=== PATIENT | female | born 1985 | race Caucasian/White ===

== ENCOUNTER 2024-03-14 11:46 | Emergency (ER) | payer BC, SELFPAY ==
[2024-03-14 12:32] VITALS: BP 116/68; PULSE 72; RESP 17; TEMP 36.7; O2SAT 99; BMI 34.3
[2024-03-14 12:34] LABS: Basophils # 0.1 10^3/uL (0.0-0.1); Basophils % 0.4 %; Eosinophils # 0.4 10^3/uL (0.0-0.8); Eosinophils % 2.6 %; Lymphocytes # 3.1 10^3/uL (0.8-4.8); Mean Corpuscular Hemoglobin 29.4 pg (27-33); Mean Corpuscular Volume 91.7 fl (85-98); Monocytes # 1.2 10^3/uL (0.2-0.9); Monocytes % 7.9 %; Neutrophils # 10.69 10^3/uL (1.8-7.7); Neutrophils % 68.7 %; Nucleated Red Blood Cells % 0 %; Platelet Count 235 10^3/cmm (157-399); Red Blood Count 4.36 10^6/uL (3.85-5.65); Red Cell Distribution Width 13.3 % (12.1-15.1); White Blood Count 15.58 10^3/uL (3.29-11.43)
--- NOTE | 2024-03-14 12:42 | XRR_ITS ---
PROCEDURE INFORMATION: Exam: XR Abdomen Exam date and time: 03/14/2024 12:51 PM Age: 38 years old Clinical indication: Constipation; Abdominal pain; Generalized; Additional info: Abd pain/constipation TECHNIQUE: Imaging protocol: Radiologic exam of the abdomen. Views: 2 Views. Upright and supine views. COMPARISON: No relevant prior studies available. FINDINGS: Gastrointestinal tract: Normal. No bowel dilation. Intraperitoneal space: Normal. No free air. Bones/joints: Unremarkable for age. XR/XR acute abdomen series [id number] IMPRESSION: No acute findings.
--- NOTE | 2024-03-14 12:42 | ED_ITS ---
Documented by User: Brenden Avalos DO 03/16/24 06:07 HPI - Abdominal Pain 2 General: Chief Complaint: Abdominal Pain Stated Complaint: dr hunter, abd pain, back pain Time Seen by Provider: 03/14/24 12:42 History of Present Illness: 38-year-old female presents emergency ro om complaining of left flank pain. She states she has had vomiting and constipation with this. She has tried several laxatives with no significant relief. She denies any medic easy melena hematemesis calf cramps no hematuria. Initial triage note referred to abdominal pain however Dr. patient is more of her back on her left flank. She has noted frequency of urination mild discomfort very minimal with urination she denies fever sweats or chills at home no shortness of breath or cough. Onset (ago): day(s) (3-4) Pain Consistency: colicky Location: L flank Severity: moderate Exacerbating factors: nothing Relieving factors: nothing Associated Symptoms: Reports dysuria (Mild); Denies chills and fever(s) Related Data: Date of Last Menstrual Period: 03/14/24 Review of Systems 2 Const: Denies: fever(s) or chills Card: Denies: chest pain Resp: Denies: dyspnea GI: Denies: abdominal pain : Reports: flank pain (Left), dysuria (Mild) and urinary frequency; Denies: urinary urgency Musc: Denies: neck pain or back pain Skin/Breast: Denies: rash [facility] 2 Female Reproductive History: Date of last menstrual period: 03/14/24 Physical Exam 2 Const: COMMON NORMALS: no acute distress GENERAL APPEARANCE: cooperative and comfortable ORIENTATION/CONSCIOUSNESS: Yes awake, Yes oriented to person, Yes oriented to place and Yes oriented to time HENMT: COMMON NORMALS: normocephalic, atraumatic and hearing grossly normal bilaterally HEAD & SCALP: normocephalic and atraumatic Resp: COMMON NORMALS: normal respiratory effort, No retractions, No use of accessory muscles and clear to auscultation bilaterally AUSCULTATION: clear to auscultation bilaterally Cardio: COMMON NORMALS: regular rate, regular rhythm and No murmurs present (Cardio) RATE: regular rate RHYTHM: regular rhythm GI: COMMON NORMALS: Soft to palpation and No hepatosplenomegaly present A USCULTATION: Yes normoactive bowel sounds PALPATION: Yes Soft to palpation, No Tenderness to palpation present (GI), No Guarding due to palpation present (GI) and Yes No hepatosplenomegaly present Extremity: COMMON NORMALS: normal to inspection, capillary refill normal, no clubbing, cyanosis or edema, no calf tenderness and no pedal edema Neuro: SENSORIUM/ORIENTATION: Yes oriented to person, Yes oriented to place and Yes oriented to time Skin: COMMON NORMALS: no rashes or lesions noted GENERAL SKIN EXAM: no rashes or lesions noted Course 2 Vital Signs: Vital signs: Vital Signs Temperature 98.1 F 03/14/24 12:32 Pulse Rate 71 03/14/24 16:33 Respiratory Rate 16 03/14/24 18:34 Blood Pressure 100/85 03/14/24 18:34 Pulse Oximetry 98 03/14/24 16:33 Oxygen Delivery Me thod Room Air 03/14/24 16:33 MDM - Abdominal Pain Medical Decision Making Mild leukocytosis generally patient is not feeling well her blood pressure is a little low at times we recommended observation for continued IV fluids and antibiotics however patient refuses. Her lactic acid was 0.8. Urine did show mild infection. Patient was given IV fluids single dose of tract ceftriaxone will discharge home with ciprofloxacin if symptoms worsen encouraged her to return for admission. Lab Data 03/14/24 12:06 03/14/24 12:06 Labs/Radiology: Radiology Impressions Chest/Abdomen X-ray 03/14/24 12:42 IMPRESSION: No acute findings. Abdomen/Pelvis CT 03/14/24 13:57 IMPRESSION: 1. Peripherally enhancing LEFT corpus luteum or hemorrhagic cyst measuring 2.7 x 2.2 cm with a small amount of adjacent free fluid extending into the cul-de-sac. 2. Mild diffuse fatty infiltration of the liver. 3. Normal appendix. 4. A few sigmoid diverticuli. 5. No hydronephrosis in either kidney. Laboratory Results WBC 15.58 10^3/uL (3.29-11.43) H 03/14/24 12:06 RBC 4.36 10^6/uL (3.85-5.65) 03/14/24 12:06 Hgb 12.80 g/dL (11.27-16.99) 03/14/24 12:06 Hct 40.0 % (36-47) 03/14/24 12:06 MCV 91.7 fl (85-98) 03/14/24 12:06 MCH 29.4 pg (27-33) 03/14/24 12:06 MCHC 32.0 g/dL (30-55) 03/14/24 12:06 RDW 13.3 % (12.1-15.1) 03/14/24 12:06 Plt Count 235 10^3/cmm (157-399) 03/14/24 12:06 MPV 13.0 fL (7.4-10.4) H 03/14/24 12:06 Neut % (Auto) 68.7 % 03/14/24 12:06 Lymph % (Auto) 20.0 % 03/14/24 12:06 [place] % (Auto) 7.9 % 03/14/24 12:06 Eos % (Auto) 2.6 % 03/14/24 12:06 Baso % (Auto) 0.4 % 03/14/24 12:06 Neut # (Auto) 10.69 10^3/uL (1.8-7.7) H 03/14/24 12:06 Lymph # (Auto) 3.1 10^3/uL (0.8-4.8) 03/14/24 12:06 [place] # (Auto) 1.2 10^3/uL (0.2-0.9) H 03/14/24 12:06 Eos # (Auto) 0.4 10^3/uL (0.0-0.8) 03/14/24 12:06 Baso # (Auto) 0.1 10^3/uL (0.0-0.1) 03/14/24 12:06 Nucleated RBC % (auto) 0 % 03/14/24 12:06 Nucleated RBCs # 0.0 /100WBC 03/14/24 12:06 Sodium 141 mmol/L (136-145) 03/14/24 12:06 Potassium 3.5 mmol/L (3.5-5.1) 03/14/24 12:06 Chloride 103 mmol/L (98-107) 03/14/24 12:06 Carbon Dioxide 25 mmol/L (22-29) 03/14/24 12:06 Anion Gap 16.5 (5-19) 03/14/24 12:06 BUN 9 mg/dL (6-20) 03/14/24 12:06 Creatinine 0.8 mg/dL (0.5-0.9) 03/14/24 12:06 GFR Calculation 79.9 mL/min (90-130) L 03/14/24 12:06 Glucose 132 mg/dL (65-115) H 03/14/24 12:06 Calculated Osmolality 293 mOsm/kg (285-295) 03/14/24 12:06 Lactic Acid 0.8 mmol/L (0.5-2.2) 03/14/24 15:57 Calcium 9.3 mg/dL (8.5-10.5) 03/14/24 12:06 Total Bilirubin 0.4 mg/dL (0.15-1.2) 03/14/24 12:06 AST 12 U/L (0-32) 03/14/24 12:06 ALT 7 U/L (0-33) 03/14/24 12:06 Alkaline Phosphatase 108 U/L (35-105) H 03/14/24 12:06 Total Protein 7.6 g/dL (6.6-8.7) 03/14/24 12:06 Albumin 4.3 g/dL (3.5-5.2) 03/14/24 12:06 Globulin 3.3 g/dL (1.3-4.6) 03/14/24 12:06 Lipase 12 U/L (13-60) L 03/14/24 12:06 HCG, Qual Negative (Negative) 03/14/24 12:06 Urine Color Dark yellow (Yellow) A 03/14/24 13:43 Urine Appearance Clear (CLEAR) 03/14/24 13:43 Urine pH 5 (5-7) 03/14/24 13:43 Ur Specific [place] 1.030 (1.005-1.030) 03/14/24 13:43 Urine Protein 1+ (Negative) H 03/14/24 13:43 Urine Glucose (UA) Norm (Normal) 03/14/24 13:43 Urine Ketones 1+ (Negative) H 03/14/24 13:43 Urine Blood 3+ (Negative) H 03/14/24 13:43 Urine Nitrate Positive (Negative) A 03/14/24 13:43 Urine Bilirubin 1+ (Negative) H 03/14/24 13:43 Urine Urobilinogen 1 mg/dL (Negative) H 03/14/24 13:43 Ur Leukocyte Esterase Trace (Negative) H 03/14/24 13:43 Urine RBC 10-15 /hpf (0-2) H 03/14/24 13:43 Urine WBC 10-15 /hpf (0-5) H 03/14/24 13:43 Ur Squamous Epith Cells 0-4 /hpf (0-5) H 03/14/24 13:43 Amorphous Sediment Not Reportable 03/14/24 13:43 Urine Bacteria 1+ /hpf (NONE) H 03/14/24 13:43 Urine Mucus 3+ /hpf 03/14/24 13:43 Discharge Plan Discharge Patient Disposition: Home Clinical Impression: Cyst of left ovary Urinary tract infection Qualifiers: Urinary tract infection type: acute pyelonephritis Qualified Code(s): N10 - Acute pyelonephritis Condition: Stable Prescriptions: New ciprofloxacin HCl 500 mg tablet 500 mg PO Q12H Qty: 20 0RF No Action albuterol sulfate 90 mcg/actuation HFA aerosol inhaler 2 puff INHALATION .Q4-6H PRN (Reason: Shortness Of Breath Or Wheezing) fluticasone propionate 50 mcg/actuation spray,suspension 2 spray INTRANASAL DAILY biotin 5 mg Tablet 5 mg PO DAILY Vitamin D3 50 mcg (2,000 unit) Tablet 50 mcg PO DAILY cranberry 450 mg Tablet 450 mg PO DAILY Rx Instructions: administer with a meal melatonin 10 mg Tablet 10 mg PO BEDTIME Discharge Orders: Discharge ED (Routine); Ordered 03/14/24 Ordered By: Nazario Barksdale Patient Instructions: Ovarian Cyst (ED), Kidney Infection (ED), Flank Pain (ED) Activity Restrictions/Additional Instructions: Your evaluation ER showed you have a significant urinary tract/kidney infection and a left ovarian cyst. These may be the cause of your significant flank pain. You have been prescribed an antibiotic as well as given an antibiotic here in ER. Please follow-up with your family practice physician and/or CLIENT RESOLUTION SPECIALIST within the next 7 days for further evaluation and treatment. If your pain becomes unbearable please feel free to return to the ER. Thank you for choosing [facility] for your healthcare needs today. Please realize that you were seen in the emergency department and that we are providing you with an emergency medical screening exam and this may not be a complete and all exclusive of all testing and/or medical workup we may need to determine your element or severity of your illness. It is very important that you follow-up as instructed with your primary care provider or specialist for the additional evaluation and to discuss your medical treatment plan. You may return to the emergency department should you have concerns or if your condition changes or worsens in any way. Coding Level of Care Code ED Air Valve Repairer for Chg Fwd Documented by User: Nazario Barksdale DO 03/15/24 04:45 HPI - Abdominal Pain 2 General: Chief Complaint: Abdominal Pain Stated Complaint: dr referral, abd pain, back pain Time Seen by Provider: 03/14/24 12:42 Course 2 Vital Signs: Vital signs: Vital Signs Temperature 98.1 F 03/14/24 12:32 Pulse Rate 71 03/14/24 16:33 Respiratory Rate 16 03/14/24 18:34 Blood Pressure 100/85 03/14/24 18:34 Pulse Oximetry 98 03/14/24 16:33 Oxygen Delivery Me thod Room Air 03/14/24 16:33 MDM - Abdominal Pain Lab Data 03/14/24 12:06 03/14/24 12:06 Labs/Radiology: Radiology Impressions Chest/Abdomen X-ray 03/14/24 12:42 IMPRESSION: No acute findings. Abdomen/Pelvis CT 03/14/24 13:57 IMPRESSION: 1. Peripherally enhancing LEFT corpus luteum or hemorrhagic cyst measuring 2.7 x 2.2 cm with a small amount of adjacent free fluid extending into the cul-de-sac. 2. Mild diffuse fatty infiltration of the liver. 3. Normal appendix. 4. A few sigmoid diverticuli. 5. No hydronephrosis in either kidney. Laboratory Results WBC 15.58 10^3/uL (3.29-11.43) H 03/14/24 12:06 RBC 4.36 10^6/uL (3.85-5.65) 03/14/24 12:06 Hgb 12.80 g/dL (11.27-16.99) 03/14/24 12:06 Hct 40.0 % (36-47) 03/14/24 12:06 MCV 91.7 fl (85-98) 03/14/24 12:06 MCH 29.4 pg (27-33) 03/14/24 12:06 MCHC 32.0 g/dL (30-55) 03/14/24 12:06 RDW 13.3 % (12.1-15.1) 03/14/24 12:06 Plt Count 235 10^3/cmm (157-399) 03/14/24 12:06 MPV 13.0 fL (7.4-10.4) H 03/14/24 12:06 Neut % (Auto) 68.7 % 03/14/24 12:06 Lymph % (Auto) 20.0 % 03/14/24 12:06 [place] % (Auto) 7.9 % 03/14/24 12:06 Eos % (Auto) 2.6 % 03/14/24 12:06 Baso % (Auto) 0.4 % 03/14/24 12:06 Neut # (Auto) 10.69 10^3/uL (1.8-7.7) H 03/14/24 12:06 Lymph # (Auto) 3.1 10^3/uL (0.8-4.8) 03/14/24 12:06 [place] # (Auto) 1.2 10^3/uL (0.2-0.9) H 03/14/24 12:06 Eos # (Auto) 0.4 10^3/uL (0.0-0.8) 03/14/24 12:06 Baso # (Auto) 0.1 10^3/uL (0.0-0.1) 03/14/24 12:06 Nucleated RBC % (auto) 0 % 03/14/24 12:06 Nucleated RBCs # 0.0 /100WBC 03/14/24 12:06 Sodium 141 mmol/L (136-145) 03/14/24 12:06 Potassium 3.5 mmol/L (3.5-5.1) 03/14/24 12:06 Chloride 103 mmol/L (98-107) 03/14/24 12:06 Carbon Dioxide 25 mmol/L (22-29) 03/14/24 12:06 Anion Gap 16.5 (5-19) 03/14/24 12:06 BUN 9 mg/dL (6-20) 03/14/24 12:06 Creatinine 0.8 mg/dL (0.5-0.9) 03/14/24 12:06 GFR Calculation 79.9 mL/min (90-130) L 03/14/24 12:06 Glucose 132 mg/dL (65-115) H 03/14/24 12:06 Calculated Osmolality 293 mOsm/kg (285-295) 03/14/24 12:06 Lactic Acid 0.8 mmol/L (0.5-2.2) 03/14/24 15:57 Calcium 9.3 mg/dL (8.5-10.5) 03/14/24 12:06 Total Bilirubin 0.4 mg/dL (0.15-1.2) 03/14/24 12:06 AST 12 U/L (0-32) 03/14/24 12:06 ALT 7 U/L (0-33) 03/14/24 12:06 Alkaline Phosphatase 108 U/L (35-105) H 03/14/24 12:06 Total Protein 7.6 g/dL (6.6-8.7) 03/14/24 12:06 Albumin 4.3 g/dL (3.5-5.2) 03/14/24 12:06 Globulin 3.3 g/dL (1.3-4.6) 03/14/24 12:06 Lipase 12 U/L (13-60) L 03/14/24 12:06 HCG, Qual Negative (Negative) 03/14/24 12:06 Urine Color Dark yellow (Yellow) A 03/14/24 13:43 Urine Appearance Clear (CLEAR) 03/14/24 13:43 Urine pH 5 (5-7) 03/14/24 13:43 Ur Specific [place] 1.030 (1.005-1.030) 03/14/24 13:43 Urine Protein 1+ (Negative) H 03/14/24 13:43 Urine Glucose (UA) Norm (Normal) 03/14/24 13:43 Urine Ketones 1+ (Negative) H 03/14/24 13:43 Urine Blood 3+ (Negative) H 03/14/24 13:43 Urine Nitrate Positive (Negative) A 03/14/24 13:43 Urine Bilirubin 1+ (Negative) H 03/14/24 13:43 Urine Urobilinogen 1 mg/dL (Negative) H 03/14/24 13:43 Ur Leukocyte Esterase Trace (Negative) H 03/14/24 13:43 Urine RBC 10-15 /hpf (0-2) H 03/14/24 13:43 Urine WBC 10-15 /hpf (0-5) H 03/14/24 13:43 Ur Squamous Epith Cells 0-4 /hpf (0-5) H 03/14/24 13:43 Amorphous Sediment Not Reportable 03/14/24 13:43 Urine Bacteria 1+ /hpf (NONE) H 03/14/24 13:43 Urine Mucus 3+ /hpf 03/14/24 13:43 All radiology interpretation(s) finalized by discharge Discharge Plan Discharge Patient Disposition: Home Clinical Impression: Cyst of left ovary Urinary tract infection Qualifiers: Urinary tract infection type: acute pyelonephritis Qualified Code(s): N10 - Acute pyelonephritis Condition: Stable Prescriptions: New ciprofloxacin HCl 500 mg tablet 500 mg PO Q12H Qty: 20 0RF No Action albuterol sulfate 90 mcg/actuation HFA aerosol inhaler 2 puff INHALATION .Q4-6H PRN (Reason: Shortness Of Breath Or Wheezing) fluticasone propionate 50 mcg/actuation spray,suspension 2 spray INTRANASAL DAILY biotin 5 mg Tablet 5 mg PO DAILY Vitamin D3 50 mcg (2,000 unit) Tablet 50 mcg PO DAILY cranberry 450 mg Tablet 450 mg PO DAILY Rx Instructions: administer with a meal melatonin 10 mg Tablet 10 mg PO BEDTIME Discharge Orders: Discharge ED (Routine); Ordered 03/14/24 Ordered By: Nazario Barksdale Patient Instructions: Ovarian Cyst (ED), Kidney Infection (ED), Flank Pain (ED) Activity Restrictions/Additional Instructions: Your evaluation ER showed you have a significant urinary tract/kidney infection and a left ovarian cyst. These may be the cause of your significant flank pain. You have been prescribed an antibiotic as well as given an antibiotic here in ER. Please follow-up with your family practice physician and/or CLIENT RESOLUTION SPECIALIST within the next 7 days for further evaluation and treatment. If your pain becomes unbearable please feel free to return to the ER. Thank you for choosing [facility] for your healthcare needs today. Please realize that you were seen in the emergency department and that we are providing you with an emergency medical screening exam and this may not be a complete and all exclusive of all testing and/or medical workup we may need to determine your element or severity of your illness. It is very important that you follow-up as instructed with your primary care provider or specialist for the additional evaluation and to discuss your medical treatment plan. You may return to the emergency department should you have concerns or if your condition changes or worsens in any way. Coding Level of Care Code ED Air Valve Repairer for Natalio Gilbert
[2024-03-14 12:55] LABS: Alanine Aminotransferase 7 U/L (0-33); Albumin Level 4.3 g/dL (3.5-5.2); Alkaline Phosphatase 108 U/L (35-105); Anion Gap 16.5 (5-19); Aspartate Amino Transferase 12 U/L (0-32); Blood Urea Nitrogen 9 mg/dL (6-20); Calcium 9.3 mg/dL (8.5-10.5); Carbon Dioxide 25 mmol/L (22-29); Chloride 103 mmol/L (98-107); Creatinine Clr Calc Pharmacy 103.0009; Globulin 3.3 g/dL (1.3-4.6); Glomerular Filtration Rate 79.9 mL/min (90-130); Glucose 132 mg/dL (65-115); Lipase 12 U/L (13-60); Osmolality Calculated 293 mOsm/kg (285-295); Potassium 3.5 mmol/L (3.5-5.1); Sodium 141 mmol/L (136-145); Total Bilirubin 0.4 mg/dL (0.15-1.2); Total Protein 7.6 g/dL (6.6-8.7)
[2024-03-14 13:00] LABS: HCG, Serum Qual Negative (Negative)
--- NOTE | 2024-03-14 13:57 | CT_ITS ---
WS: [id number] CT ABDOMEN PELVIS TECHNIQUE: Contrast-enhanced CT of the abdomen and pelvis with coronal and sagittal reformatted image s. CLINICAL INFORMATION: abd pain COMPARISON: None. DLP: 851.[address] scans at [facility] use at least one of these dose optimization techniques: automated e xposure control; mA and/or kV adjustment per patient size (includes targeted exams where dose is matc hed to clinical indication); or iterative reconstruction. FINDINGS: Mild diffuse fatty infiltration of the liver. Normal portal vein and splenic vein. Tiny cyst undersur face RIGHT hepatic lobe. Lung bases are well aerated. Normal spleen. Normal GE junction. Normal lorenza l vein and splenic vein. Normal pancreas. Tiny fat-containing umbilical hernia. Adrenal glands are no rmal. No hydronephrosis in either kidney. Peripherally enhancing LEFT ovarian cyst measuring 2.7 x 2.2 cm. Small amount of free fluid in the pe lvis. A few sigmoid diverticuli. Normal appendix in the RIGHT lower quadrant. Celiac and SMA are patent. Normal caliber abdominal aorta. Disc space narrowing worse at L5-S1. CT/CT abdomen pelvis w con* [id number] IMPRESSION: 1. Peripherally enhancing LEFT corpus luteum or hemorrhagic cyst measuring 2.7 x 2.2 cm with a small amount of adjacent free fluid extending into the cul-de- sac. 2. Mild diffuse fatty infiltration of the liver. 3. Normal appendix. 4. A few sigmoid diverticuli. 5. No hydronephrosis in either kidney.
[2024-03-14] MEDS: iohexol 350 mg/mL 500 mL Btl (per mL) IV (14:28)
[2024-03-14 14:30] LABS: Add Urine Microscopic? YES; Bilirubin Urine 1+ (Negative); Blood Urine 3+ (Negative); Glucose Urine UA Norm (Normal); Ketones Urine 1+ (Negative); Leukocyte Esterase Urine Trace (Negative); Nitrate Urine Positive (Negative); Protein Urine 1+ (Negative); Urine Appearance Clear (CLEAR); Urine Color Dark Yellow (Yellow); Urobilinogen Urine 1 mg/dL (Negative); pH Urine 5 (5-7)
[2024-03-14 14:31] LABS: Add Urine Culture? Yes; Bacteria Urine 1+ /hpf; Mucus Urine 3+ /hpf; Squamous Epithelial Cell Urine 0-4 /hpf (0-5)
[2024-03-14] MEDS: sodium chloride 0.9% 1,000 ML 999 ML IV ×2 (14:52→15:18)
[2024-03-14 14:55] VITALS: PULSE 67; RESP 18; O2SAT 99
[2024-03-14 15:28] VITALS: BP 95/51; PULSE 60; O2SAT 98
[2024-03-14 16:25] LABS: Lactic Sepsis W/Reflex 0.8 mmol/L (0.5-2.2)
[2024-03-14 16:26] VITALS: RESP 18
[2024-03-14] MEDS: morphine 4 mg/mL SDV 1 mL IVP (16:26)
[2024-03-14] MEDS: cefTRIAXone 1,000 mg SDV 1000 MG IVP (16:29)
[2024-03-14 16:33] VITALS: BP 130/47; PULSE 71; RESP 18; O2SAT 98
--- NOTE | 2024-03-14 16:35 | PC.NURSE ---
Patient states that she is very nauseous. Sitting on bedside gagging. Zofran request to Dr Laura and verbal order given for zofran 4mg ivp. RBVO and placed.
[2024-03-14] MEDS: ondansetron 2 mg/ML SDV 2 mL 4 MG IVP (16:37)
[2024-03-14 18:34] VITALS: BP 100/85; RESP 16
== END 2024-03-14 18:35 | disposition home or self-care (01) ==
PROVIDERS: Emergency Medicine; Emergency Provider Family Medicine
DX: N10 Acute pyelonephritis (principal); N83.202 Unspecified ovarian cyst, left side
CPT/HCPCS: 36415; 74022; 74177; 80053; 81001; 83605; 83690; 84703; 85025; 87086; 96361; 96374; 96375; 99285; J0696; J2270; J2405; J7030; Q9967